=== PATIENT | female | born 1940 | race Two or more races ===

== ENCOUNTER 2017-01-22 11:57 | Day surgery (SDC) | payer BC, MEDICARE ==
[2017-01-16 18:02] VITALS: BMI 28.3
[~2017-01-22 11:57] MED LIST: ACETAMINOPHEN TAB 500 MG TAB PO ONE; DEXAMETHASONE SOD PHOSPHATE 10 MG/ML 1 ML VIAL IV ONE; LACTATED RINGERS 1,000 ML IV SCH; LIDOCAINE 1% 20 ML VIAL (10MG/ML) FOR IV START INTRADERMA PRN; MIDAZOLAM 2 MG/2 ML VIAL IV PRN; ONDANSETRON 4 MG/2 ML VIAL IVP ONE; TRANEXAMIC ACID 1,000 MG in SODIUM CHLORIDE 0.9% 100 ML IVPB ONE; ceFAZolin 2 GM in SODIUM CHLORIDE 0.9% 100 ML IVPB ONE
[2017-01-22 12:38] VITALS: RESP 16
[2017-01-22] MEDS: ONDANSETRON 4 MG/2 ML VIAL IVP ONE ×2 (12:41→17:03)
[2017-01-22] MEDS ORDERED: GLYCOPYRROLATE 0.2 MG/ML 2 ML VIAL ONE (13:33)
[2017-01-22] MEDS ORDERED: LIDOCAINE 1% INJ 10MG/ML (20 ML MDV) ONE (13:33)
[2017-01-22] MEDS ORDERED: SUCCINYLCHOLINE CHLORIDE 100 MG/5 ML SYR IV ONE (13:33)
[2017-01-22] MEDS ORDERED: NEOSTIGMINE 1 MG/ML 10 ML VIAL ONE (13:33)
[2017-01-22] MEDS ORDERED: ROCURONIUM BROMIDE 10 MG/ML 10 ML VIAL IV ONE (13:33)
[2017-01-22] MEDS ORDERED: PROPOFOL 10 MG/ML 20 ML VIAL IV ONE (13:33)
[2017-01-22] MEDS ORDERED: fentaNYL (PF) 50 MCG/ML 2 ML AMP ONE (13:33)
[2017-01-22] MEDS ORDERED: MIDAZOLAM 2 MG/2 ML VIAL ONE (13:33)
[2017-01-22] MEDS ORDERED: ceFAZolin 1,000 MG in SODIUM CHLORIDE 0.9% 1,000 ML IRRIGATION ONE (15:25)
[2017-01-22] MEDS ORDERED: LACTATED RINGERS 1,000 ML IV ONE (16:01)
--- NOTE | 2017-01-22 16:07 | FL ---
EXAMINATION TYPE: FL guidance operating room, XR elbow limited LT DATE OF EXAM: 01/22/2017 4:02 PM CLINICAL HISTORY: Left elbow fracture. TECHNIQUE: Fluoroscopy. Intraoperative limited views left elbow. COMPARISON: None. FINDINGS: Fluoroscopic guidance was provided during open reduction internal fixation procedure perfo rmed by Dr. Bernard. A total of 27 seconds of fluoroscopic time was utilized during the procedure and 2 spot images are acquired. Images acquired show placement of posterior plate with large distal screw through suspected supracond ylar fracture of the distal humerus. IMPRESSION: As Above.
[2017-01-22 16:15] VITALS: TEMP 97.9
[2017-01-22] MEDS: HYDROmorphone 1 MG/ML 1 ML SYRINGE IVP PRN ×4 (16:26→17:00)
[2017-01-22 18:51] VITALS: BP 154/72; PULSE 68
--- NOTE | 2017-02-26 13:18 | P.OP ---
Date of Procedure: 01/22/17 Procedure(s) Performed: PREOPERATIVE DIAGNOSES: 1. Left distal humerus fracture (comminuted displaced capitellar fracture) POSTOPERATIVE DIAGNOSES: 1. Left distal humerus fracture (comminuted displaced capitellar fracture) 2. Severe osteoporosis PROCEDURES PERFORMED: 1. Left distal humerus fracture open reduction internal fixation 2. Open reduction of elbow subluxation 3. Local bone grafting and addition of DBX putty and cancellus allograft chips ANESTHESIA: Gen. plus regional [employer] MANAGER: None COMPLICATIONS: None ESTIMATED BLOOD LOSS: 50 mL. DISPOSITION: To post-anesthesia care unit INDICATIONS: Mrs. Jackson is a 76-year-old female who fell approximately 10 days ago and sustained a comminuted displaced fracture of her left distal humerus. The elbow also has subluxed and is in an unacceptable position, with radial subluxation of the ulna relative to the humerus. I have recommended operative treatment for this fracture subluxation and she wishes to proceed. I discussed with her the planned approach, placement of hardware, and expected postoperative recovery issues. She understands that stiffness will definitely be a factor in this elbow for the rest of her life. We also discussed other potential risks and complications of this surgery, as being inclusive of, but not limited to: Bleeding, infection, scarring, discomfort, blood vessel and/or nerve damage, hardware failure, hardware prominence or irritation, need for hardware removal, severe stiffness, persistence recurrence or worsening of problems, blood clot, pulmonary embolism, , and other risks. She is aware these risks and wishes to proceed with surgery. The consent form has been signed. PROCEDURE: After appropriate consent was obtained, the patient was taken to the operating room placed in the supine position. Anesthesia was initiated, and after confirmation of adequate anesthesia, the patient was carefully positioned in the lateral decubitus position, with the left side up. Care was taken to make sure that all pressure points were adequately padded. Prepping and draping of the entire left upper extremity were completed in the usual aseptic fashion using ChloraPrep. Timeout was called, confirming patient identity, side , procedure, and administration of antibiotics. Incision was made over the posterior aspect of the elbow, curving posterior laterally for enhanced exposure into the lateral column. The incision was deepened down through skin and into subcutaneous tissues carefully and down to triceps fascia. Triceps was approached on its lateral side and incision was then carried down to bone. Incision extended over the radiocapitellar joint carefully, with an attempt to preserve all vascularity to the capitellar fragments. This patient had fairly severe osteoporosis. The fracture of the capitellum was comminuted but there was one main fragment of the capitellum which appeared suitable for hardware fixation. This fragment was reduced as anatomically as possible and pinned provisionally with a small K wire. C-arm imaging was used throughout the case to guide placement of the hardware and handstitching machine armhole feller reduction of the fracture. In the process of reducing the capitellum, the elbow was also able to be reduced in open fashion. A lateral elbow locking plate from [employer] was selected for size and placed provisionally over the lateral column and capitellar fragment. Care was taken to place the plate as low as possible in order to capture the capitellar fragment, but not so low as to inhibit extension of the elbow. Once an appropriate location for the plate was found, the plate was provisionally pinned into position and screws were then sequentially filled starting with a nonlocking screw in the middle of the plate to bring the plate to the bone securely. Screws were then placed within the capitellar fragment in locking fashion using 2.3 mm locking screws. Care was taken to make sure that there was no joint penetration and screws were adjusted as necessary make sure that the end of the screw stayed beneath the subchondral plate. Screws were then placed proximally on the plate and gentle range of motion testing was performed and it was noted that the fracture was stable with this plate. Local bone graft was placed within the fracture site As well as morselized cancellus allograft and DBX bone putty. This was performed after thorough irrigation of the area with normal saline. Hemostasis was obtained throughout the case using electrocautery. Gentle range of motion testing was performed and it was noted that the elbow was stable and had range of motion from lacking terminal 5 of extension to greater than 125 of flexion with no evidence of instability of the repair site. Closure was then performed using 0 Vicryl suture in the fascia with careful closure over the Remy interval. The radiocapitellar joint was noted to be stable with pronation supination and flexion and extension of the elbow. Subcutaneous closure was performed using 3-0 Vicryl suture and skin was closed in standard fashion. A well-padded well molded posterior splint was applied with the elbow at approximately 90 of flexion and the forearm in neutral rotation. Patient tolerated the procedure well and taken to recovery room in stable condition. Sponge and needle counts were correct.
== END 2017-01-22 19:13 | disposition home or self-care (01) ==
LOC: OR 11:57
PROVIDERS: ATTEND Orthopaedic Surgery
DX: M80.022A Age-related osteoporosis with current pathological fracture, left humerus, initial encounter for fracture (principal); I10 Essential (primary) hypertension; E07.9 Disorder of thyroid, unspecified; E78.5 Hyperlipidemia, unspecified; K21.9 Gastro-esophageal reflux disease without esophagitis; Z79.899 Other long term (current) drug therapy; Z90.710 Acquired absence of both cervix and uterus; Z82.49 Family history of ischemic heart disease and other diseases of the circulatory system
CPT/HCPCS: 24579; 73070; C1713 ×2; C1762; J2250; J1100; J2710; J0690 ×2; J2405; J2001; J3010; J1170; J0330; J2704